=== PATIENT | female | born 1985 | race Caucasian/White ===

== ENCOUNTER 2017-04-04 21:29 | Emergency (ER) | payer OTHER ==
[~2017-04-04] VITALS: Ht 162.6 cm; Wt 61.9 kg
[2017-04-04] MEDS ORDERED: LORazepam 1MG TABLET PO ONE (22:00)
[2017-04-04 22:21] LABS: HEMATOCRIT 41.9 % (34.6-47.8); HEMOGLOBIN 13.9 g/dL (11.7-16.4); WHITE BLOOD COUNT 7.1 x10^3/uL (3.4-10)
[2017-04-04 22:28] LABS: ASPARTATE AMINO TRANSFERASE 18 U/L (15-37); BLOOD UREA NITROGEN 12 mg/dL (7-18)
[2017-04-04 22:47] VITALS: BP 127/87
== END 2017-04-04 22:51 | disposition home or self-care (01) ==
LOC: ED 22:47
DX: R20.2 Paresthesia of skin (principal); F41.1 Generalized anxiety disorder
CPT/HCPCS: 36415; 70450; 80053; 84703; 85025; 93005; 99285